=== PATIENT | female | born 1990 | race Caucasian/White ===

== ENCOUNTER 2016-12-08 22:10 | Emergency (ER) | payer SELFPAY ==
[2016-12-08] MEDS ORDERED: NORMAL SALINE 1000 ML 1,000 ML IV ONE (23:56)
--- NOTE | 2016-12-09 | ER Document Report ---
ED Medical Screen (RME) - General Chief Complaint: Epigastric Pain Stated Complaint: CHEST PAIN Time Seen by Provider: 12/08/16 23:55 Notes: 25-year-old female, chief complaint of pain in her mid to lower chest (points to lower sternum/upper epigastric area), started a few hours ago, states it is constant but intermittently worse, she states she gets the feeling like this when she is very dehydrated but she tried drinking water and lying down but it did not resolve. She denies abdominal pain, vomiting, injury, fever. She states that she "has bad anxiety". She smokes, she was drinking alcohol last night including shots, she denies lower extremity swelling, history of blood clots, cough, shortness of breath. TRAVEL OUTSIDE OF THE [place] IN LAST 30 DAYS: No - Related Data Allergies/Adverse Reactions: Sulfa (Sulfonamide Antibiotics) Allergy (Verified 12/08/16 23:15) Past Medical History Renal/ Medical History: Denies: Hx Peritoneal Dialysis Physical Exam - Vital signs Vitals: Temp Pulse Resp BP Pulse Ox 98.9 F 70 18 123/67 99 12/08/16 23:17 12/08/16 23:17 12/08/16 23:17 12/08/16 23:17 12/08/16 23:17 - General General appearance: Appears well In distress: None - Respiratory Respiratory status: No respiratory distress Chest status: Nontender Breath sounds: Normal. No: Decreased air movement, Wheezing - Abdominal Tenderness: Tender - Nonspecific exam, sitting, no guarding, minimal questionable tenderness Course - Vital Signs Vital signs: Temp Pulse Resp BP Pulse Ox 98.9 F 70 18 123/67 99 12/08/16 23:17 12/08/16 23:17 12/08/16 23:17 12/08/16 23:17 12/08/16 23:17
[2016-12-09 00:53] LABS: ABSOLUTE BASOPHILS # (AUTO) 0.1 10^3/uL (0.0-0.2); ABSOLUTE EOSINOPHILS # (AUTO) 0.1 10^3/uL (0.0-0.6); ABSOLUTE LYMPHOCYTES (AUTO) 3.7 10^3/uL (0.5-4.7); ABSOLUTE MONOCYTES (AUTO) 0.8 10^3/uL (0.1-1.4); ABSOLUTE NEUT (AUTO) 6.9 10^3/uL (1.7-8.2); BASOPHILS % (AUTO) 0.8 % (0-2); EOSINOPHILS % (AUTO) 1.2 % (0-6); HEMATOCRIT 39.4 % (36.0-47.0); HEMOGLOBIN 13.6 g/dL (12.0-15.5); HGB HCT DIFFERENCE 1.4; LYMPHOCYTES % (AUTO) 31.6 % (13-45); MEAN CORPUSCULAR HEMOGLOBIN 30.8 pg (27.0-33.4); MEAN CORPUSCULAR HGB CONC 34.5 g/dL (32.0-36.0); MEAN CORPUSCULAR VOLUME 89 fl (80-97); MONOCYTES % (AUTO) 7.2 % (3-13); RED BLOOD COUNT 4.41 10^6/uL (3.72-5.28); RED CELL DISTRIBUTION WIDTH 12.7 % (11.5-14.0); SEGMENTED NEUTROPHILS % (AUTO) 59.2 % (42-78); WHITE BLOOD COUNT 11.7 10^3/uL (4.0-10.5)
[2016-12-09 01:18] LABS: ALANINE AMINOTRANSFERASE 22 U/L (9-52); ALBUMIN 4.2 g/dL (3.5-5.0); ALKALINE PHOSPHATASE 58 U/L (38-126); ANION GAP 11 (5-19); ASPARTATE AMINO TRANSFERASE 24 U/L (14-36); BILIRUBIN,DIRECT 0.4 mg/dL (0.0-0.4); BILIRUBIN,TOTAL 0.9 mg/dL (0.2-1.3); BLOOD UREA NITROGEN 17 mg/dL (7-20); CALCIUM 9.7 mg/dL (8.4-10.2); CARBON DIOXIDE 23 mmol/L (22-30); CHLORIDE 106 mmol/L (98-107); CREATININE RESULT 0.74 mg/dL (0.52-1.25); GLUCOSE 85 mg/dL (75-110); LIPASE 140.6 U/L (23-300); POTASSIUM 4.1 mmol/L (3.6-5.0); SODIUM 139.7 mmol/L (137-145); TOTAL PROTEIN 7.1 g/dL (6.3-8.2)
--- NOTE | 2016-12-09 02:06 | ER Document Report ---
ED General - General Mode of Arrival: Ambulatory Information source: Patient TRAVEL OUTSIDE OF THE [place] IN LAST 30 DAYS: No - HPI Onset: Just prior to arrival <CELESTINA MITCHELL - Last Filed: 12/09/16 03:50> <JUSTINMULUZHOU - Last Filed: 12/09/16 04:15> - General Chief Complaint: Epigastric Pain Stated Complaint: CHEST PAIN Time Seen by Provider: 12/08/16 23:55 Notes: Patient is a 26 year old female presenting to the emergency department for chest pain located in her low sternum to upper epigastric area. Patient states it started a few hours ago and has been constant. Patient also complains of nausea. Patient states her pain is exacerbated with deep breathing and she describes it as sharp. Patient states she tried to drink water and laid down with now relief. Patient denies any abdominal pain, vomiting, diarrhea, lower extremity swelling, cough, shorteness of breath or fevers. Patient states that she has anxiety and that this pain has lasted longer than one of her normal panic attacks. Patient recently had a cold (1-2 weeks ago) and states she was given a Zpak for such. Patient also states she was drinking EtOH last night including shots. Patient has a history of GERD, anxiety, and depression. Patient is allergic to sulfa drugs. (CELESTINA MITCHELL) - Related Data Allergies/Adverse Reactions: Sulfa (Sulfonamide Antibiotics) Allergy (Verified 12/08/16 23:15) Past Medical History - General Information source: Patient - Social History Smoking Status: Current Every Day Smoker Chew tobacco use (# tins/day): No Smoking Education Provided: No Frequency of alcohol use: Social Drug Abuse: Marijuana Family History: None Patient has suicidal ideation: No Patient has homicidal ideation: No Renal/ Medical History: Reports: Hx Kidney Stones, Hx Ovarian Cysts GI Medical History: Reports: Hx Gastroesophageal Reflux Disease Psychiatric Medical History: Reports: Hx Anxiety, Hx Depression Surgical Hx: Negative <CELESTINA MITCHELL - Last Filed: 12/09/16 03:50> Review of Systems - Review of Systems Constitutional: No symptoms reported. denies: Fever EENT: No symptoms reported Cardiovascular: Chest pain Respiratory: No symptoms reported. denies: Cough, Short of breath Gastrointestinal: No symptoms reported. denies: Abdominal pain, Diarrhea, Vomiting Genitourinary: No symptoms reported Female Genitourinary: No symptoms reported Musculoskeletal: No symptoms reported Skin: No symptoms reported Hematologic/Lymphatic: No symptoms reported Neurological/Psychological: No symptoms reported -: Yes All other systems reviewed and negative <CARMELITAJOHNNY CHANGINE - Last Filed: 12/09/16 03:50> Physical Exam - Vital signs Interpretation: Normal <PAULACELESTINA - Last Filed: 12/09/16 03:50> <ZHOU JENSEN - Last Filed: 12/09/16 04:15> - Vital signs Vitals: Temp Pulse Resp BP Pulse Ox 98.9 F 70 18 123/67 99 12/08/16 23:17 12/08/16 23:17 12/08/16 23:17 12/08/16 23:17 12/08/16 23:17 - Notes Notes: GENERAL: Alert, interacts well. No acute distress. HEAD: Normocephalic, atraumatic. EYES: Pupils equal, round, and reactive to light. Extraocular movements intact. ENT: Oral mucosa moist, tongue midline. NECK: Full range of motion. Supple. Trachea midline. LUNGS: Clear to auscultation bilaterally, no wheezes, rales, or rhonchi. No respiratory distress. Sternal tenderness with palpation. HEART: Regular rate and rhythm. No murmurs, gallops, or rubs. ABDOMEN: Soft, non-tender. Non-distended. Bowel sounds present in all 4 quadrants. EXTREMITIES: Moves all 4 extremities spontaneously. No edema, radial and dorsalis pedis pulses 2/4 bilaterally. No cyanosis. NEUROLOGICAL: Alert and oriented x3. Normal speech. PSYCH: Normal affect, normal mood. SKIN: Warm, dry, normal turgor. No rashes or lesions noted. (CELESTINA MITCHELL) Course - Laboratory Result Diagrams: 12/09/16 00:30 12/09/16 00:30 <CELESTINA MITCHELL - Last Filed: 12/09/16 03:50> - Laboratory Result Diagrams: 12/09/16 00:30 12/09/16 00:30 <ZHOU JENSEN - Last Filed: 12/09/16 04:15> - Re-evaluation Re-evalutation: 12/09/16 03:20 CBC shows slight leukocytosis 11.7, CMP unremarkable, lipase normal, hCG negative, chest x-ray shows no acute process, no pneumonia, no pneumothorax per my interpretation without the aid of a radiologist. EKG nonischemic. 12/09/16 03:20 Pain is reproducible on palpation, patient had a recent upper respiratory infection which appears viral in nature. Likely costochondritis, will avoid steroids given history of anxiety. Treat with high-dose NSAIDs. (ZHOU JENSEN) - Vital Signs Vital signs: Temp Pulse Resp BP Pulse Ox 98.9 F 70 20 118/58 L 99 12/08/16 23:17 12/08/16 23:17 12/09/16 03:31 12/09/16 03:31 12/09/16 03:31 - Laboratory Laboratory results interpreted by me: 12/09/16 00:30 WBC 11.7 H - EKG Interpretation by Me Additional EKG results interpreted by me: 12/09/16 03:20 EKG shows sinus rhythm at a rate of 84, normal axis, normal intervals, no ST segment elevations or depressions, there are nonspecific T-wave inversions in lead III, V1 and V2 per my interpretation. (ZHOU JENSEN) Discharge <CELESTINA MITCHELL - Last Filed: 12/09/16 03:50> <ZHOU JENSEN - Last Filed: 12/09/16 04:15> - Discharge Clinical Impression: Costochondritis, acute, Pre-hypertension Condition: Stable Disposition: HOME, SELF-CARE Instructions: Costochondritis (OM) Additional Instructions: Please take ibuprofen 800 mg every 8 hours. Take this with food. Continue taking your Nexium. Forms: Elevated Blood Pressure Referrals: JUAN DIEGO CHAMBERS MD [Primary Care Provider] - Follow up as needed Scribe Attestation: 12/09/16 04:15 I personally performed the services described in the documentation, reviewed and edited the documentation which was dictated to the scribe in my presence, and it accurately records my words and actions. (ZHOU JENSEN) Scribe Documentation - Scribe Written by Danny:: Danny Reese 12/09/2016 02:20 acting as scribe for :: Patrick <CELESTINA MITCHELL - Last Filed: 12/09/16 03:50>
--- NOTE | 2016-12-09 03:24 | RADIOLOGY REPORT (SQ) ---
EXAM DESCRIPTION: CHEST PA/LAT COMPLETED DATE/TIME: 12/09/2016 2:22 am REASON FOR STUDY: chest pain COMPARISON: None. EXAM PARAMETERS: NUMBER OF VIEWS: two views TECHNIQUE: Digital Frontal and Lateral radiographic views of the chest acquired. RADIATION DOSE: NA LIMITATIONS: none FINDINGS: LUNGS AND PLEURA: No opacities, masses or pneumothorax. No pleural effusion. MEDIASTINUM AND HILAR STRUCTURES: No masses or contour abnormalities. HEART AND VASCULAR STRUCTURES: Heart normal size. No evidence for failure. BONES: No acute findings. HARDWARE: None in the chest. OTHER: No other significant finding. IMPRESSION: NO SIGNIFICANT RADIOGRAPHIC FINDING IN THE CHEST. TECHNICAL DOCUMENTATION: JOB ID: [id number] [employer]- All Rights Reserved
[2016-12-09 03:51] VITALS: BP 118/58
--- NOTE | 2016-12-09 08:15 | EKG REPORT ---
SEVERITY:- NORMAL ECG - SINUS RHYTHM : Confirmed by: Jessee Berman MD 09-Dec-2016 08:15:15
== END 2016-12-09 03:49 | disposition home or self-care (01) ==
LOC: ER 22:10
DX: M94.0 Chondrocostal junction syndrome [Tietze] (principal); R03.0 Elevated blood-pressure reading, without diagnosis of hypertension; F17.200 Nicotine dependence, unspecified, uncomplicated; K21.9 Gastro-esophageal reflux disease without esophagitis; Z87.442 Personal history of urinary calculi; Z88.2 Allergy status to sulfonamides
CPT/HCPCS: 93005; 99284; 36415; 83690; 84703; 85025; 80053; 71020; 93010; J7030